=== PATIENT | female | born 1965 | race African-American/Black ===

== ENCOUNTER → 2024-05-06 06:22 | Day surgery (SDC) | payer OTHER, SELFPAY ==
[2024-05-06 11:43] LABS: Glucose - Point of Care 251 mg/dl (70-99)
== END ==
LOC: GI 06:22
PROVIDERS: ATTENDING PHYSICIAN Internal Medicine
DX: Z12.11 Encounter for screening for malignant neoplasm of colon (principal); K64.8 Other hemorrhoids; K64.4 Residual hemorrhoidal skin tags; D12.0 Benign neoplasm of cecum; D12.4 Benign neoplasm of descending colon; D12.2 Benign neoplasm of ascending colon; K62.1 Rectal polyp; K63.89 Other specified diseases of intestine; R12 Heartburn; K44.9 Diaphragmatic hernia without obstruction or gangrene; K31.84 Gastroparesis; R11.10 Vomiting, unspecified
CPT/HCPCS: 45385; 45380; 43235; 88305; 82962